=== PATIENT | female | born 1985 | race Caucasian/White ===

== ENCOUNTER 2018-01-21 00:17 | Emergency (ER) | payer SELFPAY ==
[~2018-01-21] VITALS: Ht 152.4 cm; Wt 52.2 kg
[2018-01-21 00:22] VITALS: BP 93/76
--- NOTE | 2018-01-21 00:32 | Emergency Room Report ---
History of Present Illness General Chief Complaint: Medical Clearance Source: Patient Present Illness HPI Is a 32-year-old female with history of Crohn disease and opiate abuse, currently on Suboxone. She was brought in by police for medical clearance. She presents with chief complaint of not feeling well. No fever chills but no nausea vomiting. Onset since she was arrested. Denies any other complaint. No abdominal pain. Said that she's feeling shaky. Denies any urinary complaint. Allergies: Coded Allergies: PROCHLORPERAZINE (Verified Allergy, Unknown, 01/21/18) Patient History Past Medical History: see triage record, old chart reviewed Past Surgical History: other Pertinent Family History: none Social History: Reports: drug use - History Last Menstrual Period: 07/20/17 Now: No Immunizations: other Reviewed Nursing Documentation: PMH: Agreed; PSxH: Agreed Nursing Documentation-PMH Past Medical History: No History, Except For Hx Gastrointestinal Problems: Yes - crohn's disease History Of Psychiatric Problem: Yes - anxiety Review of Systems Eye: Denies: eye pain, blurred vision ENT: Denies: ear pain, nose congestion, throat swelling Respiratory: Denies: cough, shortness of breath Cardiovascular: Denies: chest pain, palpitations Gastrointestinal: Denies: abdominal pain, diarrhea, nausea, vomiting Musculoskeletal: Denies: back pain, joint pain Skin: Denies: rash Neurological: Denies: headache, numbness Endocrine: Denies: increased thirst, increased urine Hematologic/Lymphatic: Denies: easy bruising All Other Systems: negative except mentioned in HPI Physical Exam Vital Signs Date Time Temp Pulse Resp B/P (MAP) Pulse Ox O2 Delivery O2 Flow Rate FiO2 01/21/18 00:18 97.9 112 18 93/76 100 Room Air vitals with tachycardia Sp02 EP Interpretation: reviewed, normal General Appearance: well appearing, no apparent distress, alert Head: normocephalic, atraumatic Eyes: bilateral eye PERRL, bilateral eye EOMI ENT: hearing grossly normal, normal pharynx Neck: full range of motion, supple, no meningismus Respiratory: chest non-tender, lungs clear, normal breath sounds Cardiovascular #1: regular rate, rhythm, no murmur Gastrointestinal: normal bowel sounds, non tender, no mass, no organomegaly, no bruit, non-distended Musculoskeletal: back normal, gait/station normal, normal range of motion Psychiatric: mood/affect normal Skin: warm/dry Medical Decision Making Diagnostic Impression: Primary Impression: Examination, medicolegal reason Additional Impression: General weakness ER Course Patient presents with generalized weakness. She has no pain. I suspect this is secondary to reaction to being arrested. She showed no evidence of any withdrawal. Said that she did not take her Suboxone tonight. We'll discharge to police. Last Vital Signs Date Time Temp Pulse Resp B/P (MAP) Pulse Ox O2 Delivery O2 Flow Rate FiO2 01/21/18 00:23 112 18 Room Air 01/21/18 00:22 97.9 93/76 100 Status: unchanged Disposition: D/C TO LAW ENFORCEMENT IN [facility] Condition: Stable Additional Instructions: Follow-up with your doctor in 7 days. Return if symptom worsen. Abhinav Gomez MD Jan 21, 2018 00:32
== END 2018-01-21 00:35 ==
LOC: EMR 00:35
DX: Z02.89 Encounter for other administrative examinations (principal); R53.1 Weakness; F41.9 Anxiety disorder, unspecified
CPT/HCPCS: 99283